=== PATIENT | female | born 1995 | race Caucasian/White ===

== ENCOUNTER → 2016-11-09 | Outpatient (CLI) | payer OTHER ==
[~2016-11-09] MED LIST: ASCO10003 PO; Iron Supplement PO
== END | disposition home or self-care (01) ==
LOC: C.RDSM 16:00
PROVIDERS: ATTEND Family Medicine Sports Medicine
DX: M53.3 Sacrococcygeal disorders, not elsewhere classified (principal)

== ENCOUNTER → 2017-06-25 | Outpatient (CLI) | payer OTHER ==
--- NOTE | 2017-06-25 11:15 | DIAGNOSTIC IMAGING REPORT ---
THORACIC SPINE 3 VIEWS HISTORY: Upper back pain. PARESTHESIA COMPARISON: None. FINDINGS: There is no fracture. No subluxation. Disc spaces are preserved. Paraspinal soft tissues are unremarkable. IMPRESSION: No fracture or subluxation within the thoracic spine. Electronically signed by: Orion Almeida M.D. 06/25/2017 11:14 AM Dictated Date/Time: 06/25/2017 11:13 AM
== END | disposition home or self-care (01) ==
LOC: C.RADBC 10:53
PROVIDERS: ATTEND Nurse Practitioner Family
DX: M54.9 Dorsalgia, unspecified (principal); R20.2 Paresthesia of skin

== ENCOUNTER → 2017-07-01 | Outpatient (CLI) | payer OTHER ==
--- NOTE | 2017-07-01 15:18 | DIAGNOSTIC IMAGING REPORT ---
L-SPINE MIN 4 VIEWS ROUTINE HISTORY: 22 years-old Female PARESTHESIAS acute lower back pain for a few months without known injury COMPARISON: Thoracic spine radiographs 06/25/2017, sacrum and coccyx radiographs 11/09/2016 TECHNIQUE: 5 views of lumbar spine FINDINGS: The ribs at T12 are hypoplastic. No acute fracture or subluxation or significant degenerative changes. Intervertebral disc spaces are maintained. No evidence of spondylolysis or spondylolisthesis. Soft tissues are unremarkable. IMPRESSION: 1. No acute fracture or subluxation. 2. No significant degenerative changes. No spondylolysis or spondylolisthesis. The above report was generated using voice recognition software. It may contain grammatical, syntax or spelling errors. Electronically signed by: Deni Marcus M.D. 07/01/2017 3:16 PM Dictated Date/Time: 07/01/2017 3:15 PM
--- NOTE | 2017-07-01 15:20 | DIAGNOSTIC IMAGING REPORT ---
C-SPINE ROUTINE 4 OR 5 VIEWS HISTORY: 22 years-old Female PARESTHESIAS acute neck pain for a few months with paresthesia. COMPARISON: Thoracic spine radiographs 06/25/2017 TECHNIQUE: 5 views of the cervical spine FINDINGS: There is slight reversal of the normal cervical lordosis. No acute fracture, subluxation or significant degenerative changes. Soft tissues are unremarkable. IMPRESSION: 1. No acute fracture or subluxation. 2. Slight reversal of the normal cervical lordosis. The above report was generated using voice recognition software. It may contain grammatical, syntax or spelling errors. Electronically signed by: Deni Marcus M.D. 07/01/2017 3:19 PM Dictated Date/Time: 07/01/2017 3:18 PM
== END | disposition home or self-care (01) ==
LOC: C.RADBC 14:39
PROVIDERS: ATTEND Nurse Practitioner Family
DX: M54.9 Dorsalgia, unspecified (principal); R20.2 Paresthesia of skin

== ENCOUNTER → 2017-11-09 | Outpatient (CLI) | payer OTHER | END | disposition home or self-care (01) | LOC: C.PAPS 14:18 | PROVIDERS: ATTEND Physician Assistant | DX: Z01.419 Encounter for gynecological examination (general) (routine) without abnormal findings (principal) ==

== ENCOUNTER → 2017-11-09 | Outpatient (CLI) | payer OTHER | END | disposition home or self-care (01) | LOC: C.LABSPEC 13:31 | PROVIDERS: ATTEND Physician Assistant | DX: Z01.419 Encounter for gynecological examination (general) (routine) without abnormal findings (principal); N89.8 Other specified noninflammatory disorders of vagina ==

== ENCOUNTER → 2017-12-08 | Outpatient (CLI) | payer OTHER | END | disposition home or self-care (01) | LOC: C.LABSPEC 13:38 | PROVIDERS: ATTEND Physician Assistant | DX: N89.8 Other specified noninflammatory disorders of vagina (principal) ==

== ENCOUNTER → 2018-01-13 | Outpatient (CLI) | payer OTHER ==
[2018-01-18 14:44] LABS: HERPES SIMPLEX VIRUS CULT NOT ISOLATED (NOT ISOLATED)
== END | disposition home or self-care (01) ==
LOC: C.LABSPEC 18:30
PROVIDERS: ATTEND Physician Assistant
DX: N90.89 Other specified noninflammatory disorders of vulva and perineum (principal)